=== PATIENT | female | born 1955 | race Caucasian/White ===

== ENCOUNTER 2019-06-12 09:27 | Outpatient (CLI) | payer OTHER | END 2019-06-12 23:59 | disposition home or self-care (01) | LOC: CFH 09:27 | PROVIDERS: ATTEND Family Medicine | DX: Z12.31 Encounter for screening mammogram for malignant neoplasm of breast (principal); M81.0 Age-related osteoporosis without current pathological fracture | CPT/HCPCS: 77080; 77067 ==

== ENCOUNTER → 2019-09-19 | Outpatient (CLI) | payer OTHER ==
[~2019-09-19] MED LIST: OMNIPAQUE 350 MG/ML, 75ML BOTTLE ONE
[2019-09-19 14:55] LABS: CREATININE 0.61 mg/dL (0.55-1.02)
== END | disposition home or self-care (01) ==
LOC: RAD 14:12
PROVIDERS: ATTEND Family Medicine
DX: R91.8 Other nonspecific abnormal finding of lung field (principal); E27.9 Disorder of adrenal gland, unspecified
CPT/HCPCS: 36415; 71260; 82565; Q9967

== ENCOUNTER 2019-09-21 16:33 | Emergency (ER) | payer OTHER ==
[~2019-09-21] VITALS: Ht 160 cm; Wt 65.0 kg
--- NOTE | 2019-09-21 17:05 | NUR ---
PT HERE TODAY AFTER STARTING TO COUGH UP BLOOD AT 1500 TODAY. WAS RECENTLY TOLD SHE HAS A MASS ON HER LUNGS THE SIZE OF A TENNIS BALL- AT THIS POINT UNSURE IF IT IS INFECTION OR CA. RESTING ON GURNEY. NADN. VSS. MORAN AT BEDSIDE ASSESSING PT NOW. PT'S BINGO CHECKER AWARE PT IS IN ER.
[2019-09-21] MEDS ORDERED: SODIUM CHLORIDE FLUSH 10ML SYR IVF ONE (17:30)
--- NOTE | 2019-09-21 17:40 | NUR ---
PIV STARTED, BLOOD COLLECTED. EKG BEING PERFORMED NOW. PT HAS BEEN TO RADIOLOGY AND BACK. RESTING ON GURNEY. NADN. COSBY.
[2019-09-21 17:48] LABS: BASOPHILS # (AUTO) 0.05 x10^3/uL (0-0.1); BASOPHILS % (AUTO) 0 % (0-1); EOSINOPHILS # (AUTO) 0.09 x10^3/uL (0-0.4); EOSINOPHILS % (AUTO) 1 % (1-7); LYMPHOCYTES # (AUTO) 0.93 x10^3/uL (1-3.4); LYMPHOCYTES % (AUTO) 7 % (22-44); MD NO; MEAN CORPUSCULAR HEMOGLOBIN 29.5 pg (27.0-34.8); MEAN CORPUSCULAR VOLUME 92.2 fL (80-100); MEAN PLATELET VOLUME 6.8 fL (7.4-10.4); MONOCYTES # (AUTO) 0.71 x10^3/uL (0.2-0.8); MONOCYTES % (AUTO) 6 % (2-9); NEUTROPHILS # (AUTO) 11.22 x10^3/uL (1.8-6.8); NEUTROPHILS % (AUTO) 86 % (42-75); PLATELET COUNT 424 x10^3/uL (130-400); RED BLOOD COUNT 3.85 x10^6/uL (3.82-5.3); RED CELL DISTRIBUTION WIDTH 14.4 % (9.6-15.2)
[2019-09-21 17:57] LABS: INTERNATIONAL NORMALIZED RATIO 1.03 (0.93-1.1); PROTHROMBIN TIME 10.8 Seconds (9.6-11.5)
[2019-09-21 17:58] LABS: ALBUMIN 2.8 g/dL (3.4-5.0); ANION GAP 5 mmol/L (5-15); CALCIUM 8.8 mg/dL (8.5-10.1); CHLORIDE 106 mmol/L (98-107)
--- NOTE | 2019-09-21 18:21 | NUR ---
PT REQUESTING WATER. WILL INFORM
--- NOTE | 2019-09-21 18:37 | NUR ---
MD AT BEDSIDE UPDATING PT ON POC.
--- NOTE | 2019-09-21 18:45 | NUR ---
PT GETTING DRESSED FOR DC, AWARE OF POC.
--- NOTE | 2019-09-21 18:55 | NUR ---
RECEIVED REPORT FROM NATAN SUTTON. AWAITING DC PAPERS.
[2019-09-21 19:01] VITALS: BP 112/82
--- NOTE | 2019-09-21 19:01 | NUR ---
PATIENT DISCHARGED WITH INSTRUCTION. VERBALIZED UNDERSTANDING.
== END 2019-09-21 19:05 | disposition home or self-care (01) ==
LOC: ED 18:50
DX: R04.2 Hemoptysis (principal); E78.00 Pure hypercholesterolemia, unspecified
CPT/HCPCS: 36415; 71046; 80048; 82040; 83880; 85025; 85610; 85730; 93005; 99284

== ENCOUNTER 2019-09-27 07:53 | Day surgery (SDC) | payer OTHER ==
[~2019-09-27] VITALS: Ht 160 cm; Wt 63.0 kg
[2019-09-27] MEDS ORDERED: SUCCINYLCHOLINE 20 MG/ML, 10ML ONE (08:06)
[2019-09-27] MEDS ORDERED: DEXAMETHASONE 4 MG/ML, 1ML ONE ×2 (08:06)
[2019-09-27] MEDS ORDERED: LIDOCAINE-MPF 2% ,5ML ONE (08:06)
[2019-09-27] MEDS ORDERED: PROPOFOL 10 MG/ML, 20ML ONE (08:06)
[2019-09-27] MEDS ORDERED: FENTANYL PF 100 MCG/2ML ONE (08:10)
[2019-09-27] MEDS ORDERED: LIDOCAINE GEL 2%, 5ML ONE (08:10)
[2019-09-27] MEDS ORDERED: MIDAZOLAM 1 MG/ML, 2ML ONE (08:11)
[2019-09-27] MEDS ORDERED: LACTATED RINGERS 1,000 ML IV SCH (08:24)
[2019-09-27] MEDS ORDERED: ACETAMINOPHEN 325 MG TABLET PO PRN (08:30)
[2019-09-27] MEDS ORDERED: ONDANSETRON 2MG/ML, 2ML IV PRN (08:30)
[2019-09-27] MEDS ORDERED: LABETALOL 5MG/ML, 20ML IV PRN (08:30)
[2019-09-27] MEDS ORDERED: MEPERIDINE/PF 25MG/ML,1ML IVPush PRN (08:30)
[2019-09-27] MEDS ORDERED: hydrALAzine 20 MG/ML, 1ML IV PRN (08:30)
[2019-09-27] MEDS ORDERED: HYDROmorphone 2 MG/ML, 1ML IVPush PRN (08:30)
[2019-09-27] MEDS ORDERED: HYDROcodone/APAP 7.5-325MG/15ML UDC PO PRN (08:30)
[2019-09-27] MEDS ORDERED: EPHEDRINE 50 MG/ML, 1ML IVPush PRN (08:30)
[2019-09-27] MEDS ORDERED: FENTANYL PF 100 MCG/2ML IV PRN (08:30)
[2019-09-27] MEDS ORDERED: PROMETHAZINE 25 MG/ML, 1ML IV PRN (08:30)
[2019-09-27 08:53] VITALS: BP 126/78
[2019-09-27] MEDS ORDERED: KETOROLAC 30 MG/1 ML ONE (10:25)
[2019-09-27] MEDS ORDERED: CEFTRIAXONE PMX 2GM/50ML 50 ML IVPB ONE (10:30)
[2019-09-27] MEDS ORDERED: ONDANSETRON 2MG/ML, 2ML ONE (10:31)
[2019-10-13] MEDS ORDERED: ATOR80TA PO (14:09)
[2019-10-13] MEDS ORDERED: MULT-658 PO (14:09)
[2019-10-13] MEDS ORDERED: ALEN70TA6 PO (14:09)
== END 2019-09-27 12:55 | disposition home or self-care (01) ==
LOC: OUT 07:53
PROVIDERS: ATTEND Internal Medicine
DX: R91.8 Other nonspecific abnormal finding of lung field (principal); C34.12 Malignant neoplasm of upper lobe, left bronchus or lung; E78.5 Hyperlipidemia, unspecified; Z79.82 Long term (current) use of aspirin; Z79.899 Other long term (current) drug therapy; Z88.0 Allergy status to penicillin
CPT/HCPCS: 31627; 31628; 88172; 88173; 88177; 88305; 88341; 88342; J0330; J1100; J1885; J2250; J2405; J2704; J3010; 31625; 31629

== ENCOUNTER 2019-10-04 10:00 | Outpatient (CLI) | payer OTHER ==
[2019-10-04] MEDS ORDERED: GADOTERATE 7.5 MMOL/15 ML SYR ONE (10:35)
[2019-10-13] MEDS ORDERED: MULT-658 PO (14:09)
[2019-10-13] MEDS ORDERED: ATOR80TA PO (14:09)
[2019-10-13] MEDS ORDERED: ALEN70TA6 PO (14:09)
== END 2019-10-04 23:59 | disposition home or self-care (01) ==
LOC: CFH 10:00
PROVIDERS: ATTEND Internal Medicine
DX: R91.8 Other nonspecific abnormal finding of lung field (principal)
CPT/HCPCS: 70553; A9575

== ENCOUNTER → 2019-10-06 | Outpatient (CLI) | payer OTHER | END | disposition home or self-care (01) | LOC: PETCFH 08:53 | PROVIDERS: ATTEND Family Medicine | DX: R91.8 Other nonspecific abnormal finding of lung field (principal); R05 Cough; R61 Generalized hyperhidrosis; R63.4 Abnormal weight loss | CPT/HCPCS: 78815; A9552 ==

== ENCOUNTER 2019-10-16 11:28 | Inpatient (IN) | payer OTHER ==
[2019-10-13 14:28] LABS: BASOPHILS # (AUTO) 0.03 x10^3/uL (0-0.1); BASOPHILS % (AUTO) 0 % (0-1); EOSINOPHILS # (AUTO) 0.25 x10^3/uL (0-0.4); EOSINOPHILS % (AUTO) 2 % (1-7); LYMPHOCYTES # (AUTO) 1.04 x10^3/uL (1-3.4); LYMPHOCYTES % (AUTO) 7 % (22-44); MD NO; MEAN CORPUSCULAR HEMOGLOBIN 28.6 pg (27.0-34.8); MEAN CORPUSCULAR HGB CONC 32.4 g/dL (32.4-35.8); MEAN CORPUSCULAR VOLUME 88.3 fL (80-100); MEAN PLATELET VOLUME 6.5 fL (7.4-10.4); MONOCYTES # (AUTO) 0.77 x10^3/uL (0.2-0.8); MONOCYTES % (AUTO) 5 % (2-9); NEUTROPHILS # (AUTO) 12.62 x10^3/uL (1.8-6.8); NEUTROPHILS % (AUTO) 86 % (42-75); PLATELET COUNT 531 x10^3/uL (130-400); RED BLOOD COUNT 3.71 x10^6/uL (3.82-5.3); RED CELL DISTRIBUTION WIDTH 15.4 % (9.6-15.2)
[2019-10-13 14:36] LABS: ALANINE AMINOTRANSFERASE 26 U/L (12-78); ALBUMIN 2.6 g/dL (3.4-5.0); ANION GAP 10 mmol/L (5-15); CHLORIDE 104 mmol/L (98-107); CREATININE 0.54 mg/dL (0.55-1.02)
[2019-10-13 14:38] LABS: ALKALINE PHOSPHATASE 58 U/L (45-117); BILIRUBIN,TOTAL 0.3 mg/dL (0.2-1.0); TOTAL PROTEIN 7.3 g/dL (6.4-8.2)
[~2019-10-16] VITALS: Ht 160 cm; Wt 74.9 kg
[~2019-10-16 11:28] MED LIST changes: +ALEN70TA6 PO; +ATOR80TA PO; +MULT-658 PO; -OMNIPAQUE 350 MG/ML, 75ML BOTTLE ONE
[2019-10-16] MEDS ORDERED: GABAPENTIN 300 MG CAPSULE PO ONE (13:00)
[2019-10-16] MEDS ORDERED: ACETAMINOPHEN 500 MG TABLET PO ONE (13:00)
[2019-10-16] MEDS ORDERED: LACTATED RINGERS 1,000 ML IV SCH (13:10)
[2019-10-16] MEDS ORDERED: BUPIVACAINE/PF 0.5% ONE ×2 (14:50→15:05)
[2019-10-16] MEDS ORDERED: EPINEPHRINE 1 MG/ML, 1ML ONE ×2 (14:50→15:05)
[2019-10-16] MEDS ORDERED: MIDAZOLAM 1 MG/ML, 2ML ONE (16:25)
[2019-10-16] MEDS ORDERED: FENTANYL PF 250 MCG/5ML ONE (16:25)
[2019-10-16] MEDS ORDERED: ONDANSETRON 2MG/ML, 2ML ONE (16:32)
[2019-10-16] MEDS ORDERED: GLYCOPYRROLATE 0.2MG/1ML, 5ML ONE (16:32)
[2019-10-16] MEDS ORDERED: PROPOFOL 10 MG/ML, 20ML ONE (16:32)
[2019-10-16] MEDS ORDERED: SUCCINYLCHOLINE 20 MG/ML, 10ML ONE (16:32)
[2019-10-16] MEDS ORDERED: CEFAZOLIN 1,000 MG ONE (16:32)
[2019-10-16] MEDS ORDERED: ROCURONIUM 10MG/ML,5ML ONE (16:32)
[2019-10-16] MEDS ORDERED: DEXAMETHASONE 4 MG/ML, 1ML ONE (16:32)
[2019-10-16] MEDS ORDERED: NEOSTIGMINE 1 MG/ML, 10ML ONE (16:32)
[2019-10-16] MEDS ORDERED: LIDOCAINE/MPF 2%-EPI 1:200K, 20 ML ONE (16:43)
[2019-10-16] MEDS ORDERED: SUGAMMADEX 200 MG/2 ML IVPush ONE (16:54)
[2019-10-16] MEDS ORDERED: DO NOT GIVE MC SCH (18:30)
[2019-10-16] MEDS ORDERED: NALOXONE 0.4 MG/ML, 1ML IV PRN (18:30)
[2019-10-16] MEDS ORDERED: EPHEDRINE 50 MG/ML, 1ML IVPush PRN (18:30)
[2019-10-16] MEDS ORDERED: NALOXONE 0.4 MG/ML, 1ML IVPush PRN (18:30)
[2019-10-16] MEDS ORDERED: ONDANSETRON 2MG/ML, 2ML IV PRN (18:30)
[2019-10-16] MEDS ORDERED: DO NOT GIVE XX SCH (18:30)
[2019-10-16] MEDS ORDERED: FENTANYL PF 100 MCG/2ML IV PRN (20:30)
[2019-10-16] MEDS ORDERED: MIDAZOLAM 1 MG/ML, 2ML IV PRN (20:30)
[2019-10-16] MEDS ORDERED: PROMETHAZINE 25 MG/ML, 1ML IV PRN (20:30)
[2019-10-16] MEDS ORDERED: OXYcodone 5 MG/5 ML ORAL.SOL UDC PO PRN (20:30)
[2019-10-16] MEDS ORDERED: METOPROLOL 1 MG/ML, 5ML IV PRN (20:30)
[2019-10-16] MEDS ORDERED: ALBUTEROL/IPRATROPIUM 2.5MG/0.5MG, 3 ML NPPB PRN (20:30)
[2019-10-16] MEDS ORDERED: hydrALAzine 20 MG/ML, 1ML IV PRN (20:30)
[2019-10-16] MEDS ORDERED: HYDROmorphone 2 MG/ML, 1ML IVPush PRN (20:30)
[2019-10-16] MEDS ORDERED: ONDANSETRON 2MG/ML, 2ML IVPush PRN (21:00)
[2019-10-16] MEDS: BUPIVACAINE/PF 0.5%, 30ML 62.5 ML in SODIUM CHLORIDE 0.9% 187.5 ML EPIDCONT SCH (21:15)
[2019-10-16 21:22] LABS: BASOPHILS # (AUTO) 0.03 x10^3/uL (0-0.1); BASOPHILS % (AUTO) 0 % (0-1); EOSINOPHILS % (AUTO) 2 % (1-7); LYMPHOCYTES # (AUTO) 0.66 x10^3/uL (1-3.4); LYMPHOCYTES % (AUTO) 4 % (22-44); MD NO; MEAN CORPUSCULAR HEMOGLOBIN 28.8 pg (27.0-34.8); MEAN CORPUSCULAR HGB CONC 32.3 g/dL (32.4-35.8); MEAN CORPUSCULAR VOLUME 89.3 fL (80-100); MEAN PLATELET VOLUME 6.6 fL (7.4-10.4); MONOCYTES # (AUTO) 0.28 x10^3/uL (0.2-0.8); MONOCYTES % (AUTO) 2 % (2-9); NEUTROPHILS # (AUTO) 14.73 x10^3/uL (1.8-6.8); NEUTROPHILS % (AUTO) 92 % (42-75); PLATELET COUNT 405 x10^3/uL (130-400); RED BLOOD COUNT 3.02 x10^6/uL (3.82-5.3); RED CELL DISTRIBUTION WIDTH 15.7 % (9.6-15.2)
[2019-10-16 21:30] LABS: INTERNATIONAL NORMALIZED RATIO 1.12 (0.93-1.1); PROTHROMBIN TIME 11.7 Seconds (9.6-11.5)
[2019-10-16 21:33] LABS: ALBUMIN 2.1 g/dL (3.4-5.0); ANION GAP 8 mmol/L (5-15); CALCIUM 7.7 mg/dL (8.5-10.1); CHLORIDE 112 mmol/L (98-107)
[2019-10-16 21:36] LABS: ALANINE AMINOTRANSFERASE 20 U/L (12-78); ALKALINE PHOSPHATASE 53 U/L (45-117); BILIRUBIN,TOTAL 0.3 mg/dL (0.2-1.0); CREATININE 0.37 mg/dL (0.55-1.02); TOTAL PROTEIN 5.9 g/dL (6.4-8.2)
[2019-10-16] MEDS ORDERED: FENTANYL PF 100 MCG/2ML ONE (21:37)
[2019-10-16] MEDS: FENTANYL PF 100 MCG/2ML EPIDPUSH PRN ×2 (21:39→21:48)
[2019-10-16] MEDS: ACETAMINOPHEN 500 MG TABLET PO SCH (22:51)
[2019-10-16] MEDS: POTASSIUM CHLORIDE 20 MEQ in D5%-0.45% NACL 1,000 ML IV SCH (22:54)
[2019-10-16] MEDS: KETOROLAC 30 MG/1 ML IV PRN (23:36)
[2019-10-17] MEDS: ACETAMINOPHEN 500 MG TABLET PO SCH ×4 (03:17→21:24)
[2019-10-17] MEDS: FENTANYL PF 100 MCG/2ML EPIDPUSH PRN ×2 (03:27→10:39)
[2019-10-17 04:05] LABS: MEAN CORPUSCULAR HEMOGLOBIN 28.1 pg (27.0-34.8); MEAN CORPUSCULAR HGB CONC 32.2 g/dL (32.4-35.8); MEAN CORPUSCULAR VOLUME 87.2 fL (80-100); MEAN PLATELET VOLUME 6.7 fL (7.4-10.4); PLATELET COUNT 420 x10^3/uL (130-400); RED BLOOD COUNT 3.22 x10^6/uL (3.82-5.3); RED CELL DISTRIBUTION WIDTH 15.6 % (9.6-15.2)
[2019-10-17 04:15] LABS: ALANINE AMINOTRANSFERASE 22 U/L (12-78); ALBUMIN 2.2 g/dL (3.4-5.0); ANION GAP 7 mmol/L (5-15); CALCIUM 7.9 mg/dL (8.5-10.1); CHLORIDE 109 mmol/L (98-107); CREATININE 0.39 mg/dL (0.55-1.02)
[2019-10-17 04:17] LABS: ALKALINE PHOSPHATASE 55 U/L (45-117); BILIRUBIN,TOTAL 0.4 mg/dL (0.2-1.0); TOTAL PROTEIN 6.4 g/dL (6.4-8.2)
[2019-10-17 04:26] LABS: BASOPHILS # (AUTO) 0.02 x10^3/uL (0-0.1); BASOPHILS % (AUTO) 0 % (0-1); EOSINOPHILS % (AUTO) 0 % (1-7); LYMPHOCYTES # (AUTO) 0.55 x10^3/uL (1-3.4); LYMPHOCYTES % (AUTO) 4 % (22-44); MD SCAN; MONOCYTES # (AUTO) 0.18 x10^3/uL (0.2-0.8); MONOCYTES % (AUTO) 1 % (2-9); NEUTROPHILS # (AUTO) 13.65 x10^3/uL (1.8-6.8); NEUTROPHILS % (AUTO) 95 % (42-75)
[2019-10-17] MEDS ORDERED: ALBUTEROL SULFATE 2.5 MG/3 ML ONE (06:26)
[2019-10-17] MEDS ORDERED: ALBUTEROL SULFATE 2.5 MG/3 ML NPPB PRN (07:00)
[2019-10-17] MEDS ORDERED: HEPARIN 5,000 UNITS/ML, 1ML SQ SCH (08:00)
[2019-10-17] MEDS: KETOROLAC 30 MG/1 ML IV PRN ×2 (08:33→20:01)
[2019-10-17] MEDS: POTASSIUM CHLORIDE 20 MEQ in D5%-0.45% NACL 1,000 ML IV SCH (11:57)
[2019-10-17 19:54] VITALS: BP 101/65
[2019-10-17] MEDS: GUAIFENESIN 200 MG TABLET PO SCH (20:01)
[2019-10-17] MEDS: BUPIVACAINE/PF 0.5%, 30ML 62.5 ML in SODIUM CHLORIDE 0.9% 187.5 ML EPIDCONT SCH (21:57)
[2019-10-18 01:47] VITALS: BP 99/66
[2019-10-18] MEDS: POTASSIUM CHLORIDE 20 MEQ in D5%-0.45% NACL 1,000 ML IV SCH ×2 (03:56→08:11)
[2019-10-18] MEDS: ACETAMINOPHEN 500 MG TABLET PO SCH ×4 (03:56→22:00)
[2019-10-18] MEDS: GUAIFENESIN 200 MG TABLET PO SCH ×4 (06:06→20:19)
[2019-10-18] MEDS: IBUPROFEN 800 MG TABLET PO SCH ×4 (08:30→20:19)
[2019-10-18 08:59] VITALS: BP 128/70
[2019-10-18] MEDS: HEPARIN 5,000 UNITS/ML, 1ML SQ SCH ×2 (10:37→18:35)
[2019-10-18] MEDS: OXYcodone 5 MG/5 ML ORAL.SOL UDC PO PRN ×3 (10:37→18:36)
[2019-10-18 14:45] VITALS: BP 93/63
[2019-10-18] MEDS ORDERED: HEPARIN 5,000 UNITS/ML, 1ML SQ SCH (16:00)
[2019-10-18 19:33] VITALS: BP 108/73
[2019-10-19 00:18] VITALS: BP 106/69
[2019-10-19] MEDS: OXYcodone 5 MG/5 ML ORAL.SOL UDC PO PRN ×2 (02:28→08:05)
[2019-10-19] MEDS: HEPARIN 5,000 UNITS/ML, 1ML SQ SCH (02:28)
[2019-10-19] MEDS: POTASSIUM CHLORIDE 20 MEQ in D5%-0.45% NACL 1,000 ML IV SCH (04:00)
[2019-10-19] MEDS: ACETAMINOPHEN 500 MG TABLET PO SCH (04:42)
[2019-10-19] MEDS: GUAIFENESIN 200 MG TABLET PO SCH (06:00)
[2019-10-19] MEDS: IBUPROFEN 800 MG TABLET PO SCH (08:05)
[2019-10-19] MEDS ORDERED: OXYC5TAB3 PO (08:22)
[2019-10-19] MEDS ORDERED: IBUP-1223 PO (08:23)
[2019-10-19] MEDS ORDERED: ACET-1600 PO (08:24)
[2019-10-19 08:50] VITALS: BP 110/72
== END 2019-10-19 09:25 | disposition home or self-care (01) | DRG 165 ==
LOC: ORIP 11:28 → CCU 22:06 → 4NE 10-17 18:55 → DCLOUNGE 10-19 09:11
PROVIDERS: ADMIT Surgery; ATTEND Surgery
PROC: 07B74ZX Excision of Thorax Lymphatic, Percutaneous Endoscopic Approach, Diagnostic (ICD-10-PCS; 2019-10-16)
PROC: 0BJ08ZZ Inspection of Tracheobronchial Tree, Via Natural or Artificial Opening Endoscopic (ICD-10-PCS; 2019-10-16)
PROC: 0BTG4ZZ Resection of Left Upper Lung Lobe, Percutaneous Endoscopic Approach (ICD-10-PCS; principal; 2019-10-16 16:30)
DX: C34.12 Malignant neoplasm of upper lobe, left bronchus or lung (principal); Z90.49 Acquired absence of other specified parts of digestive tract; Z82.49 Family history of ischemic heart disease and other diseases of the circulatory system; Z80.3 Family history of malignant neoplasm of breast; Z88.0 Allergy status to penicillin
CPT/HCPCS: 36415; 36600; J7613; S0020; 71045; 80053; 82803; 85025; 85610; 85730; 86850; 86900; 87081; 88305; 88309; 94640; C1729; G0378; J0171; J0690; J1100; J1644; J1885; J2250; J2405; J2704; J2710; J3010; J3480; J3490; C1760; J0330; J7050; J7120

== ENCOUNTER → 2019-12-24 | Outpatient (CLI) | payer OTHER ==
[~2019-12-24] MED LIST changes: +ACET-1600 PO; +IBUP-1223 PO; +OXYC5TAB3 PO
[2019-12-24 14:54] LABS: ALANINE AMINOTRANSFERASE 48 U/L (12-78); ALBUMIN 3.5 g/dL (3.4-5.0); ANION GAP 5 mmol/L (5-15); CALCIUM 9.1 mg/dL (8.5-10.1); CHLORIDE 110 mmol/L (98-107); CREATININE 0.58 mg/dL (0.55-1.02)
[2019-12-24 14:57] LABS: ALKALINE PHOSPHATASE 38 U/L (45-117); BILIRUBIN,TOTAL 0.3 mg/dL (0.2-1.0); TOTAL PROTEIN 6.7 g/dL (6.4-8.2)
== END | disposition home or self-care (01) ==
LOC: LAB 14:23
PROVIDERS: ATTEND Internal Medicine Hematology & Oncology
DX: Z51.11 Encounter for antineoplastic chemotherapy (principal); C34.12 Malignant neoplasm of upper lobe, left bronchus or lung; Z79.899 Other long term (current) drug therapy
CPT/HCPCS: 36415; 80053

== ENCOUNTER 2020-05-27 10:31 | Outpatient (CLI) | payer OTHER ==
[2020-05-27] MEDS ORDERED: OMNIPAQUE 350 MG/ML, 75ML BOTTLE ONE (14:51)
== END 2020-05-27 23:59 | disposition home or self-care (01) ==
LOC: CFH 10:31
PROVIDERS: ATTEND Internal Medicine Hematology & Oncology
DX: C34.12 Malignant neoplasm of upper lobe, left bronchus or lung (principal); R91.8 Other nonspecific abnormal finding of lung field; J98.4 Other disorders of lung
CPT/HCPCS: 71260; Q9967